=== PATIENT | male | born 1940 | race African-American/Black ===

== ENCOUNTER 2017-12-20 11:22 | Emergency (ER) | payer BC, OTHER ==
[~2017-12-20] VITALS: Ht 175.3 cm; Wt 76.0 kg
[~2017-12-20 11:22] MED LIST: ASPI-1159 PO; CHLO25TA2 PO; LISI2.5T47 PO
[2017-12-20 12:32] LABS: HEMATOCRIT. 41.6 % (42.0-52.0); HEMOGLOBIN. 13.7 g/dL (14.0-18.0); MEAN CORPUSCULAR HEMOGLOBIN 31.8 pg (28.0-32.0); MEAN CORPUSCULAR VOLUME 96.2 fL (80.0-94.0); MEAN PLATELET VOLUME 10.3 fl (7.4-10.4); PLATELET 102 x1000/uL (130-400); RED BLOOD CELL COUNT 4.32 mill/uL (4.7-6.1); RED CELL DISTRIBUTION WIDTH 13.9 % (11.6-14.6)
[2017-12-20 12:34] LABS: CHLORIDE 106 mEq/L (98-107)
[2017-12-20 13:14] LABS: PLATELET ESTIMATE DECREASED
[2017-12-20 15:11] VITALS: BP 157/82
[2017-12-20 15:13] LABS: CLARITY URINE CLEAR (CLEAR); COLOR URINE YELLOW (YELLOW); KETONES URINE NEGATIVE (NEGATIVE); LEUKOCYTE ESTERASE URINE NEGATIVE (NEGATIVE); NITRITE URINE NEGATIVE (NEGATIVE); OCCULT BLOOD URINE NEGATIVE (NEGATIVE); PROTEIN URINE NEGATIVE (NEGATIVE); SPECIFIC GRAVITY URINE 1.006 (1.005-1.030); UROBILINOGEN URINE 0.2 E.U./dL (0.2-1.0)
== END 2017-12-20 15:33 | disposition home or self-care (01) ==
LOC: EDBD 12:32 → ER 12:32
DX: D72.829 Elevated white blood cell count, unspecified (principal); D64.9 Anemia, unspecified; I10 Essential (primary) hypertension; E78.00 Pure hypercholesterolemia, unspecified; Z95.810 Presence of automatic (implantable) cardiac defibrillator; Z59.0 Homelessness
CPT/HCPCS: 36415; 71045; 80053; 81003; 82962; 85025; 99285; Z7610